=== PATIENT | male | born 1980 | race American Indian/Alaskan Native ===

== ENCOUNTER 2022-03-22 12:05 | Outpatient (CLI) | payer OTHER | END 2022-03-22 21:02 | disposition home or self-care (01) | LOC: RESP 12:05 | PROVIDERS: ATTEND Nurse Practitioner Family | DX: R07.89 Other chest pain (principal); R06.02 Shortness of breath | CPT/HCPCS: 93005 ==

== ENCOUNTER 2022-10-04 13:42 | Outpatient (CLI) | payer OTHER | END 2022-10-04 20:59 | disposition home or self-care (01) | LOC: MRI 13:42 | PROVIDERS: ATTEND Internal Medicine | DX: M17.12 Unilateral primary osteoarthritis, left knee (principal); M25.562 Pain in left knee ==